=== PATIENT | male | born 1960 | race Caucasian/White ===

== ENCOUNTER → 2016-12-06 | Outpatient (CLI) | payer OTHER ==
--- NOTE | 2016-12-06 14:02 | REP ---
MRI LEFT KNEE WITHOUT CONTRAST: 12/06/2016 CLINICAL HISTORY: Left knee pain, evaluate for meniscal tear. There are no prior pertinent studies. TECHNIQUE: Axial fat-suppressed PD, coronal PD and fat-suppressed PD, sagittal PD, T2 STIR and gradient-echo sequences provided. Both the ACL and PCL are intact without a tear. There is some fluid in the intercondylar notch. There is a transverse meniscal ligament of Solomon anterior to the PCL as a normal finding. The medial meniscus shows complex tear involving the posterior horn with extensive subjacent bone contusion of the medial femoral condyle along much of its articular surface and periphery. The anterior horn of the meniscus is displaced peripherally and anteriorly appearing from the posterior horn. There is a questionable displaced fragment or bucket-handle tear. There is a tibial plateau bone bruise peripherally. There is grade 3 chondromalacia femoral condyle and grade 2 chondromalacia tibial plateau and other areas of the femoral condyle. Spurs tibial spines noted. The medial collateral ligamentous complex shows some strain. There is attenuation of the patellar retinaculum and abundant fluid deep to the patellar retinaculum at the medial femoral condyle. I do not see a popliteal fossa cyst at this time. The lateral meniscus shows extensive intrameniscal degenerative type 2 signal in the posterior horn, less in the anterior horn, but no definite tear of the meniscus only minimal grade 1 chondromalacia tibial plateau. There is no bone bruise or fracture. No narrowing of the lateral compartment while the medial compartment is slightly narrowed due to the chondromalacia. Lateral collateral ligament complex grossly intact. Patellar retinaculum bowed peripherally by bursal recess fluid from the large suprapatellar effusion. The popliteus tendon and the proximal tibial-fibular articulation, unremarkable. There are a few millimeters of lateral patellar subluxation and chondromalacia grade 2 lateral facet, grade 1 medial facet with the extensor mechanism showing quadriceps and patellar tendons intact. Marginal osteophytes of the patella also noted. No patellar bone bruise or fracture. large suprapatellar effusion is noted with a medial suprapatellar plica. IMPRESSION: 1. Complex tear posterior horn and body of the medial meniscus with the anterior horn displaced peripherally and anteriorly. Questionable bucket-handle tear posterior midline aspect of the medial compartment. 2. Bone bruise medial femoral condyle articular aspect and periphery along with a small bone bruise in the periphery of the medial tibial plateau. 3. The MCL shows some mild strain, and there is bowing and attenuation of the medial patellar retinaculum due to strain and significant bursal recess fluid from the large suprapatellar effusion. 4. Cruciate ligaments, lateral meniscus without a definite tear. Minimal chondromalacia lateral compartment. Mild to moderate chondromalacia patellofemoral joint. Extensor mechanism intact. 5. Large suprapatellar effusion extending into bursal recesses and both other joint compartments with suprapatellar effusion. 6. Chondromalacia, moderately to severe medial compartment, mild lateral compartment. Signed by Donald Ivory MD 12/06/2016 04:45 P
== END ==
LOC: M RAD 10:23
PROVIDERS: ATTEND Orthopaedic Surgery
DX: S83.242A Other tear of medial meniscus, current injury, left knee, initial encounter (principal); T14.8 Other injury of unspecified body region; M25.462 Effusion, left knee; M94.262 Chondromalacia, left knee; X58.XXXA Exposure to other specified factors, initial encounter; Y92.9 Unspecified place or not applicable; Y93.9 Activity, unspecified; Y99.9 Unspecified external cause status

== ENCOUNTER → 2020-03-06 | Outpatient (REF) | payer BC | LOC: M WUC 10:19 | PROVIDERS: ATTEND Physician Assistant | DX: R50.9 Fever, unspecified (principal); Z11.59 Encounter for screening for other viral diseases ==

== ENCOUNTER → 2020-03-07 | Outpatient (CLI) | payer BC, OTHER ==
[2020-03-07 12:47] LABS: BASO % 0.2 % (0.0-1.0); HEMATOCRIT 42.2 % (42.0-52.0); HEMOGLOBIN 14.8 g/dl (13.5-17.5); LYMPH # 0.2 10^3/uL (1.5-5.0); LYMPH % 5.7 % (24.0-44.0); MEAN CORPUSCULAR HEMOGLOBIN 31.3 pg (27.0-33.0); MEAN CORPUSCULAR HGB CONC 35.1 g/dl (32.0-36.5); MEAN CORPUSCULAR VOLUME 89.2 fl (80.0-96.0); MONO # 0.2 10^3/uL (0.0-0.8); MONO % 3.5 % (0.0-5.0); NEUTROPHILS # 3.8 10^3/uL (1.5-8.5); NEUTROPHILS % 90.4 % (36.0-66.0); PLATELET COUNT, AUTOMATED 104 10^3/uL (150-450); RED BLOOD COUNT 4.73 10^6/uL (4.30-6.10); WHITE BLOOD COUNT 4.2 10^3/uL (4.0-10.0)
[2020-03-07 13:04] LABS: ALBUMIN 3.6 GM/DL (3.2-5.2); BILIRUBIN,TOTAL 0.8 MG/DL (0.2-1.0); CALCIUM LEVEL 8.9 MG/DL (8.8-10.2); CREATININE FOR GFR 1.3 MG/DL (0.70-1.30); GLOMERULAR FILTRATION RATE 59.9 (>49); POTASSIUM SERUM 3.1 MEQ/L (3.5-5.1); TOTAL PROTEIN 6.7 GM/DL (6.4-8.2)
[2020-03-08 17:06] LABS: Lyme Disease IgG/IgM Antibodie <0.91 ISR (0.00-0.90); Lyme Disease IgM Ab Quantitati <0.80 index (0.00-0.79)
== END ==
LOC: M WUC 09:18
PROVIDERS: ATTEND Physician Assistant
DX: R50.9 Fever, unspecified (principal)